=== PATIENT | female | born 1950 | race Caucasian/White ===

== ENCOUNTER 2020-01-31 08:00 | Outpatient (CLI) | payer MEDICARE, BC | END 2020-01-31 08:01 | disposition home or self-care (01) | LOC: LAB.R 08:00 | PROVIDERS: ATTEND Physician Assistant Medical | DX: R50.9 Fever, unspecified (principal); Z20.828 Contact with and (suspected) exposure to other viral communicable diseases | CPT/HCPCS: 87275; 87276; U0004 ==

== ENCOUNTER 2020-03-02 08:00 | Outpatient (CLI) | payer MEDICARE, BC ==
--- NOTE | 2020-03-02 12:45 | XRAY Report ---
PROCEDURE: Chest 2 View X-Ray INDICATIONS: CHEST PRESSURE, RIGHT TECHNIQUE: 2 view(s) of the chest. COMPARISON: None. FINDINGS: Surgical changes and devices: None. Lungs and pleura: No pleural effusions or pneumothorax. Lungs are mildly hyperinflated and hyperluc ent but otherwise clear. Mediastinum: Mediastinal contours are normal. Heart size is normal. Bones and chest wall: No suspicious bony abnormalities. Healing left lateral rib fracture. Soft tiss ues appear unremarkable. IMPRESSION: Changes suggesting mild emphysema or asthma. Reviewed by: Shelly Fagan MD on 03/02/2020 12:43 PM PDT Approved by: Shelly Fagan MD on 03/02/2020 12:43 PM PDT Station ID: [id number]
== END 2020-03-02 23:59 ==
LOC: DI.S 08:00 → MERGE 08:00 → DI.S 23:59
PROVIDERS: ATTEND Physician Assistant
DX: R07.89 Other chest pain (principal)
CPT/HCPCS: 71046

== ENCOUNTER 2020-03-02 11:22 | Outpatient (CLI) | payer MEDICARE, BC | END 2020-03-02 11:23 | disposition short-term general hospital (02) | LOC: EMS 11:22 | PROVIDERS: ATTEND Surgery | DX: R07.89 Other chest pain (principal) | CPT/HCPCS: A0425; A0427 ==

== ENCOUNTER 2021-09-20 09:09 | Outpatient (CLI) | payer MEDICARE, BC ==
[2021-09-20 15:44] LABS: ALBUMIN 3.9 g/dL (3.2-5.5); ALBUMIN/GLOBULIN RATIO 1.2 (1.0-2.2); ALKALINE PHOSPHATASE 63 IU/L (42-121); ALT ALANINE AMINOTRANSFERASE 17 IU/L (10-60); AST ASPARTATE AMINOTRANSFERASE 23 IU/L (10-42); BILIRUBIN,TOTAL 0.7 mg/dL (0.2-1.0); BUN - BLOOD UREA NITROGEN 23 mg/dL (6-20); CALCIUM 9.5 mg/dL (8.5-10.3); CARBON DIOXIDE - CO2 27 mmol/L (21-32); CHLORIDE 106 mmol/L (101-111); CHOLESTEROL 191 mg/dL; CREATININE 0.8 mg/dL (0.4-1.0); GFR - MDRD 71 (>89); GLUCOSE 92 mg/dL (70-100); HDL CHOLESTEROL 63 mg/dL; LDL CHOLESTEROL,CALCULATED 112 mg/dL; LDL/HDL RATIO 1.8 (<4.4); SODIUM 140 mmol/L (135-145); TOTAL PROTEIN 7.2 g/dL (6.7-8.2); TRIGLYCERIDES 80 mg/dL; VLDL CHOLESTEROL 16 mg/dL
[2021-09-20 15:54] LABS: CREATININE,URINE 47.8 mg/dL; MICROALBUM/CREATININE RATIO,UR 6.3 ug/mg (<30.0); MICROALBUMIN,URINE 0.3 mg/dL (0-300.0)
== END 2021-09-20 09:10 | disposition home or self-care (01) ==
LOC: LAB.S 09:09
PROVIDERS: ATTEND Family Medicine
DX: Z00.00 Encounter for general adult medical examination without abnormal findings (principal); I10 Essential (primary) hypertension; Z13.6 Encounter for screening for cardiovascular disorders
CPT/HCPCS: 36415; 80053; 80061; 82043; 82570; 83721